=== PATIENT | female | born 1965 | race Caucasian/White ===

== ENCOUNTER 2025-07-06 14:39 | Outpatient (AMB) | payer BC, SELFPAY ==
--- NOTE | 2025-07-06 14:46 | MHC.PC.OV ---
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 Ophthalmologic History: The patient has a complex ophthalmologic history involving her right eye, including an episode that caused a blood vessel to break and a complete loss of vision due to hemorrhage. Dr. Wharton performed a procedure pertaining to hemorrhage and repaired a retinal tear found during the surgery. Subsequently, she developed a cataract in the same eye, which was removed by Dr. Sun Gardner. More recently, she experienced an issue on the left side of her right eye, which Dr. Wharton repaired with a laser. Her vision is reportedly improving, but she is now experiencing symptoms in her left eye. She has regular 6-month follow-ups with Dr. Wharton and also sees Dr. Hernandez (director of cardiology) and Dr. Gardner (waybill clerk). Hypertension: The patient has a history of hypertension, managed with lisinopril 5 mg. Depression and Anxiety: The patient takes sertraline 50 mg for depression and anxiety. She reports her mood has been good. She has experienced significant stress and mild anxiety, with a OSCAR-7 score of 7, related to recent medical issues. Weight Management: The patient reports experiencing weight gain since menopause. Her lifestyle includes walking for exercise and dietary efforts such as trying not to eat after 6 p.m. 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 Restless Legs Syndrome: The patient reports experiencing restless legs at night, which is effectively relieved by taking a magnesium supplement. Migraine Headaches: The patient has a history of migraines but reports a significant improvement since menopause, having only experienced two headaches. Health Maintenance: The patient's last colonoscopy was in 2015 and she is due for a repeat screening. Her last mammogram was in August 2024 and was normal. She sees Dr. Rhoades at [facility] for gynecological care. [facility] Medical History (Updated 07/06/25 @ 23:13 by Maria Elena Proctor MD) Routine adult health maintenance Restless legs syndrome Retinal detachment Screening for colon cancer Depression Migraines Primary hypertension Obesity Surgical History (Updated 07/01/25 @ 07:38 by Kyung Weiss) History of colonoscopy (~01/04/16) Family History (Updated 07/06/25 @ 13:02 by Maria Elena Proctor MD) Other Primary hypertension Questionnaire PHQ-9 Over the last 2 weeks, how often have you been bothered by any of the following problems? 1. Little interest or pleasure in doing things: not at all 2. Feeling down, depressed, or hopeless: several days 3. Trouble falling or staying asleep, or sleeping too much: several days 4. Feeling tired or having little energy: several days 5. Poor appetite or overeating: not at all 6. Feeling bad about yourself - or that you are a failure or have let yourself or your family down: not at all 7. Trouble concentrating on things, such as reading the newspaper or watching television: not at all 8. Moving or speaking so slowly that other people could have noticed. Or the opposite - being so fidgety or restless that you have been moving around a lot more than usual: not at all 9. Thoughts that you would be better off or of hurting yourself in some way: not at all Total score: 3 Depression Screening Interpretation: Negative Depression Screening Done: Yes Source: Developed by Drs. Billy López, Alba Phillips, García Cortes and colleagues, with an educational dustin from [employer]. Thrive Questionnaire Date Thrive assessed: 07/06/25 I am a: Patient What is your living situation today?: I have a steady place to live Within the past 12 months, did the food you bought not last and you didn't have the money to get more?: Never true Within the past 12 months, did you worry whether your food would run out before you got money to buy more?: Never true Do you have trouble paying for medicines?: No Do you have trouble getting transportation to medical appointments?: No Do you have trouble paying your heating and electricity bill?: No Do you have trouble taking care of your child, family member or friend?: No Do you have trouble with day-to-day activities such as bathing, preparing meals, shopping, managing finances, etc.?: No Are you currently unemployed and looking for a job?: No Are you interested in more education?: No Please select the resources that you would like help with: None Currently or been in a relationship where the following occur: No concerns reported THRIVE Score: 0 AUDIT C Alcohol Use Questionnaire (AUDIT-C) 1. How often do you have a drink containing alcohol?: Monthly or less 2. How many drinks containing alcohol do you have on a typical day when you are drinking?: 1 or 2 3. How often do you have six or more drinks on one occasion?: Never Total Score: 1 OSCAR-7 AMB Questionnaire OSCAR-7 Date OSCAR - 7 assessed: 07/06/25 Feeling nervous, anxious, or on edge: 1 = Several days Not being able to stop or control worryin = Several days Worrying too much about different things: 3 = Nearly every day Trouble relaxin = Several days Being so restless that it is hard to sit still: 0 = Not at all Becoming easily annoyed or irritable: 1 = Several days Feeling afraid as if something awful might happen: 0 = Not at all Total OSCAR-7 score (0-4 normal; 5-9 mild; 10-14 moderate; 15-21 severe): 7 Source: Developed by Drs. Billy López, Alba Phillips, García Cortes and colleagues, with an educational dustin from [employer]. Review of Systems Narrative Review of Systems - Constitutional: Reports weight gain since menopause. - Eyes: per hpi - Respiratory: Denies wheezing. - Neurological: Reports restless legs at night, which are relieved by magnesium. Reports a history of migraines, which have significantly improved post-menopause. - Psychiatric: per hpi Physical exam (Primary Care) Vital Signs: Last Vital Signs Temp 98.7 F 07/06/25 14:50 Pulse 59 07/06/25 14:50 Resp 16 07/06/25 14:50 BP 135/71 07/06/25 14:50 Pulse Ox 97 07/06/25 14:50 Oxygen Delivery Method Room Air 07/06/25 14:50 BMI result Body Mass Index 32.1 PHQ-9: PHQ-9 Score PHQ-9: Total score 3 07/06/25 15:20 Depression Screening Interpretation: Negative Thrive Assessment: Date of Thrive Assessment Date Thrive assessed 07/06/25 07/06/25 15:05 Currently or been in a relationship where the following occur: No concerns reported Narrative Physical Exam - General: Patient is alert and oriented. - Head/ENT: Left ear canal is clear. Right ear has a minimal amount of non-obstructive cerumen. Oropharynx is clear. - Neck: Supple. No cervical or supraclavicular lymphadenopathy. Thyroid is normal-sized and non-palpable. - Cardiovascular: Regular rate and rhythm. A known heart murmur is present. No carotid bruits. - Respiratory: Lungs are clear to auscultation bilaterally. No wheezes. - Abdomen: Soft, non-distended, and non-tender to palpation or percussion. Normal bowel sounds are present. - Extremities: Trace edema bilaterally of the lower extremities. Coding Level of Care Code New Pt Prev Care 40-64y(85602) Add On Preventative Visit Only Diagnoses Primary hypertension I10 Routine adult health maintenance Z00.00 Assessment & Plan Assessment & Plan (1) Primary hypertension: Code(s): I10 - Essential (primary) hypertension Category: Medical (2) Routine adult health maintenance: Code(s): Z00.00 - Encounter for general adult medical examination without abnormal findings Category: Medical Plan Assessment and Plan 1. Annual Physical Exam / Health Maintenance - The patient is re-establishing care. - A comprehensive metabolic panel, lipid panel, diabetes screening, vitamin D, B12, magnesium, thyroid panel, and a urine microalbumin will be ordered. - A referral will be placed to Gastroenterology for a screening colonoscopy, as she is due in 2025. - The patient will request her records from her gynecology provider. - A follow-up visit is scheduled in 6 months. 2. Hypertension - Stable on lisinopril 5 mg. - For trace bilateral lower extremity edema, advised on leg elevation and consideration of compression socks. 3. Depression/Anxiety - Condition is stable on sertraline 50 mg. - The patient has mild situational anxiety (OSCAR-7 of 7) related to recent healthcare navigation challenges. - Prescription refilled and routed to [facility]. 4. Ophthalmologic History - The patient has a complex history including multiple retinal repairs and cataract surgery in the right eye, and now has new symptoms in the left eye. - She remains under the care of her established team of an director of cardiology (Dr. Hernandez), waybill clerk (Dr. Gardner), and retina specialist (Dr. Wharton). - Continue Areds vitamins. 5. Weight Management - The patient is concerned about post-menopausal weight gain. - We discussed lifestyle approaches including diet and exercise. - Advised to consider a food logging marques (Trelligence) or commercial programs like Weight Watchers or Noom. - Will check TSH. - Deferred consideration of GLP-1 agonists due to a cautious approach given her extensive eye history and potential ocular side effects. 6. Restless Legs Syndrome - Symptoms are well-managed with magnesium supplementation as needed. - A magnesium level will be checked with her labs. 7. Migraine Headaches - History of migraines, which have improved significantly since menopause and are infrequent. - No change in management is needed at this time. Follow up in 6 months Plan - Order comprehensive fasting labs, including a complete metabolic panel, lipid profile, diabetes screening, vitamin D, B12, thyroid panel, and magnesium level. - Submit a referral to Gastroenterology for a screening colonoscopy. - Recommend lifestyle modifications for weight management, including food logging with an marques or exploring programs like Weight Watchers or Noom. - Advise the patient on management for trace edema, including leg elevation and considering compression socks. Patient Instructions - Please go to the lab to have your blood drawn. Remember to fast for 8-10 hours beforehand, but you can drink water. - We are placing a referral for a screening colonoscopy. The specialist's office will call you to schedule the appointment. - For the mild swelling in your legs, try to elevate your feet when possible. You can also use compression socks if you are on your feet for long periods. - For weight management, you can try tracking what you eat for a week using an marques like Trelligence to see your baseline calorie intake. Orders: Orders Comprehensive Met. Panel Today E66.9 - Obesity, unspecified, I10 - Essential (primary) hypertension Hemoglobin A1c Today E66.9 - Obesity, unspecified, I10 - Essential (primary) hypertension Vitamin B12 Today E66.9 - Obesity, unspecified, I10 - Essential (primary) hypertension Microalbumin, Random (w Creat) Today E66.9 - Obesity, unspecified, I10 - Essential (primary) hypertension TSH reflex Free T4 Today G25.81 - Restless legs syndrome Lipid Panel Today E66.9 - Obesity, unspecified, I10 - Essential (primary) hypertension Vitamin D 25-OH Total Today E66.9 - Obesity, unspecified, I10 - Essential (primary) hypertension Magnesium Today G25.81 - Restless legs syndrome Referrals Gastroenterology Referral Z12.11 - Encounter for screening for malignant neoplasm of colon Medications: New lisinopril 5 mg PO DAILY 90 tabs 3RF sertraline 50 mg PO DAILY 90 tabs 3RF mecobalamin (vitamin B12) 5,000 mcg PO Q OTHER DAY lisinopril 5 mg PO DAILY 90 tabs 3RF sertraline 50 mg PO DAILY 90 tabs 3RF [BIOTIN 6000] PO 2XD
[2025-07-06 14:50] VITALS: BP 135/71; PULSE 59; RESP 16; TEMP 37.1; O2SAT 97; BMI 32.1
--- OUTSIDE RECORDS SUMMARY | 2025-07-06 17:58 | XMS_ITS | Patient Health Record ---
Author Organization [facility] Address [address] [place] [address] Care Team Providers Care Rn Examiner Name Role Phone ROBERT MONTES Primary Care Provider Marisela Elizabeth Mccord Unavailable [phone] Reason For Referral No Information Medications Medication SIG (Take, Route, Fr equency, Duration) Notes Start Date End Date Status miSOPROStol 200 MCG 2 tabs Orally the ni ght prior to procedure; Duration: 1 days 12/16/2019 A ctive Lisinopril 5 MG Orally Acti ve Sertraline HCl 50 MG Orally Active miSOPROStol 200 MCG 2 tabs Orally the ni ght prior to procedure; Duration: 1 days 12/23/2019 A ctive Social History Alcohol Screen (Audit-C) Question Answer Notes Did you have a drink contain ing alcohol in the past year? Yes How often did you have a dri nk containing alcohol in the past year? 2 to 4 times a month (2 points) How many drinks did you have on a typical day when you were drinking in the past year? 1 or 2 drinks (0 point) Points 2 Interpretation Negative Tobacco use other than smoking: Question Answer Notes Are you an other tobacco user? No Problems Problem Type SNOMED Code ICD Code Onset Dates Problem Status W/U Status Risk Notes Problem Essential hypertension (84212956) Essential hypertension (401) Active confirmed Problem Postmenopausal bleeding (00786671) Postmenopausal bleeding (N95.0) Active confirmed Problem Major depression, single episode (35723893) Major depressive disorder, single episode, unspecified (F32.9) Active confirmed Problem Obesity (061332460) Obesity, unspecified (E66.9) Active confirmed Plan Of Treatment Pending Test Test Name Order Date Test, Urine 12/17/2019 FSH 10/03/2017 LH 10/03/2017 MM Digital Mammo Screening 09/20/2016 MM Digital Mammo Screening 09/20/2015 PELVIC ULTRASOUND W/TRANSVAGINAL 020 MM Digital Screening Mammogram 3D 2018 Insurance Providers Payer Name Payer Address Payer Phone Subscriber Number Group Number Insured Name Patient Relationship to Insured Coverage Start Date Coverage End Date [employer] [place] [address] [place] [address] [id number] SUSANNA RUEDA Self - patient is the insured Medical (General) History Medical History History ICD Code Postmenopausal bleeding N95.0 Essential (primary) hypertension I10 Major depressive disorder, single episod e, unspecified F32.9 Obesity, unspecified E66.9 Surgical History Surgery Date(Month/Year) Colonoscopy
== END 2025-07-06 15:36 | disposition home or self-care (01) ==
LOC: HO.HMCHD 14:40
PROVIDERS: PCP Internal Medicine; Visit Provider Internal Medicine
DX: Z00.00 Encounter for general adult medical examination without abnormal findings (principal); I10 Essential (primary) hypertension